=== PATIENT | male | born 1975 | race African-American/Black ===

== ENCOUNTER 2019-04-14 12:24 | Emergency (ER) | payer BC ==
--- NOTE | 2019-04-14 14:39 | ER ---
Nurse's Notes [facility] Name: Rashad Hurtado Age: 44 yrs Sex: Male : 1975 Arrival Date: 04/14/2019 Time: 12:28 Bed 10 Private MD: Joseph Cordova V Diagnosis: Rash and other nonspecific skin eruption;Essential (primary) hypertension Presentation: 04/14 12:59 Transition of care: patient was not received from another setting of care. Care prior aa5 to arrival: None. 12:59 Method Of Arrival: Ambulatory aa5 12:59 Acuity: YESSY 5 aa5 12:59 Presenting complaint: Patient states: rash to face and neck that began yesterday. Sent aa5 here from Urgent care for BP 172/118. Pt states "I left my medicine at home so I haven't taken it today". Onset of symptoms was March 2019. Risk Assessment: Do you want to hurt yourself or someone else? Patient reports no desire to harm self or others. Initial Sepsis Screen: Does the patient meet any 2 criteria? No. Patient's initial sepsis screen is negative. Does the patient have a suspected source of infection? No. Patient's initial sepsis screen is negative. Historical: - Allergies: 13:01 No Known Allergies; aa5 - PMHx: 13:01 Hypertension; aa5 - PSHx: 13:01 None; aa5 - Immunization history:: Flu vaccine is not up to date. - Social history:: Smoking status: Patient uses tobacco products, denies chronic smoking, but will smoke occasionally. - Ebola Screening: : No symptoms or risks identified at this time. Screenin:30 Abuse screen: Denies threats or abuse. Denies injuries from another. Nutritional hb screening: No deficits noted. Tuberculosis screening: No symptoms or risk factors identified. Fall Risk None identified. Assessment: 14:30 General: Appears in no apparent distress. Behavior is calm, cooperative. Pain: Pain hb currently is 4 out of 10 on a pain scale. Neuro: Level of Consciousness is awake, alert, obeys commands, Oriented to person, place, time, situation. Cardiovascular: Capillary refill < 3 seconds Patient's skin is warm and dry. Respiratory: Airway is patent Respiratory effort is even, unlabored, Respiratory pattern is regular, symmetrical, Breath sounds are clear bilaterally. GI: No signs and/or symptoms were reported involving the gastrointestinal system. : No signs and/or symptoms were reported regarding the genitourinary system. EENT: No signs and/or symptoms were reported regarding the EENT system. Derm: diffuse macular rash. Musculoskeletal: No signs and/or symptoms reported regarding the musculoskeletal system. Vital Signs: 13:01 BP 182 / 103; Pulse 90; Resp 16 S; Temp 98.4(TE); Pulse Ox 98% on R/A; Weight 111.58 kg aa5 (R); Height 5 ft. 7 in. (170.18 cm) (R); Pain 4/10; 14:44 BP 160 / 99; Pulse 84; Resp 16; Temp 98.3(O); Pulse Ox 100% ; lt1 13:01 Body Mass Index 38.53 (111.58 kg, 170.18 cm) aa5 ED Course: 12:28 Patient arrived in ED. am2 12:28 Joseph Cordova MD is Private Physician. am2 12:59 Triage completed. aa5 12:59 Arm band placed on. aa5 14:30 [facility]. snw 14:30 Rene Kathleen MD is Attending Physician. snw 14:30 Patient has correct armband on for positive identification. Call light in reach. hb 14:38 Joseph Cordova MD is Referral Physician. snw 14:50 Mariel Paiz, RN is Primary Nurse. hb 14:51 No provider procedures requiring assistance completed. Patient did not have IV access hb during this emergency room visit. Administered Medications: 14:48 Drug: Lisinopril 40 mg Route: PO; hb 14:52 Follow up: Response: Medication administered at discharge. hb 14:48 Drug: predniSONE 20 mg Route: PO; hb 14:52 Follow up: Response: Medication administered at discharge. hb 14:48 Drug: Pepcid 20 mg Route: PO; hb 14:52 Follow up: Response: Medication administered at discharge. hb Outcome: 14:39 Discharge ordered by . snw 14:51 Discharged to home ambulatory, with significant other. hb 14:51 Condition: stable 14:51 Discharge instructions given to patient, family, Instructed on discharge instructions, follow up and referral plans. medication usage, Demonstrated understanding of instructions, follow-up care, medications, Prescriptions given X 2. 14:53 Patient left the ED. Signatures: Adamaris Mo, AYANNA-C PELT SALTER-Csnw Yuliet Snyder RN RN aa5 Mariel Paiz RN RN Lelo Lomax am2 Zee Rosales 1 Corrections: (The following items were deleted from the chart) 13:01 12:59 Presenting complaint: Patient states: rash to face and neck that began yesterday. aa5 Sent here from Urgent care. aa5
--- NOTE | 2019-04-14 14:40 | EDPHYS ---
Physician Documentation [facility] Name: Rashad Hurtado Age: 44 yrs Sex: Male : 1975 Arrival Date: 04/14/2019 Time: 12:28 Bed 10 Private MD: Joseph Cordova V ED Physician Rene Kathleen HPI: 04/14 15:36 This 44 yrs old Black Male presents to ER via Ambulatory with complaints of Rash, snw Allergic Reaction. 15:36 The patient's rash thought to be caused by Dermatitis. The rash is located on the face snw and neck. The rash can be described as papular. Onset: The symptoms/episode began/occurred suddenly, yesterday. Associated signs and symptoms: Pertinent positives: burning sensation, Pertinent negatives: itching. Severity of symptoms: At their worst the symptoms were moderate. The patient has not experienced similar symptoms in the past. appt with Dr. Cordova this week. Historical: - Allergies: 13:01 No Known Allergies; aa5 - PMHx: 13:01 Hypertension; aa5 - PSHx: 13:01 None; aa5 - Immunization history:: Flu vaccine is not up to date. - Social history:: Smoking status: Patient uses tobacco products, denies chronic smoking, but will smoke occasionally. - Ebola Screening: : No symptoms or risks identified at this time. ROS: 15:35 Constitutional: Negative for fever, chills, and weight loss, Eyes: Negative for injury, snw pain, redness, and discharge, ENT: Negative for injury, pain, and discharge, Neck: Negative for injury, pain, and swelling, Cardiovascular: Negative for chest pain, palpitations, and edema, Respiratory: Negative for shortness of breath, cough, wheezing, and pleuritic chest pain, Abdomen/GI: Negative for abdominal pain, nausea, vomiting, diarrhea, and constipation, Back: Negative for injury and pain, : Negative for injury, bleeding, discharge, and swelling, MS/Extremity: Negative for injury and deformity, Neuro: Negative for headache, weakness, numbness, tingling, and seizure, Psych: Negative for depression, anxiety, suicide ideation, homicidal ideation, and hallucinations. 15:35 Skin: Positive for rash, of the face and neck. Exam: 15:32 Constitutional: This is a well developed, well nourished patient who is awake, alert, snw and in no acute distress. Eyes: Pupils equal round and reactive to light, extra-ocular motions intact. Lids and lashes normal. Conjunctiva and sclera are non-icteric and not injected. Cornea within normal limits. Periorbital areas with no swelling, redness, or edema. ENT: Nares patent. No nasal discharge, no septal abnormalities noted. Tympanic membranes are normal and external auditory canals are clear. Oropharynx with no redness, swelling, or masses, exudates, or evidence of obstruction, uvula midline. Mucous membranes moist. Chest/axilla: Normal chest wall appearance and motion. Nontender with no deformity. No lesions are appreciated. Cardiovascular: Regular rate and rhythm with a normal S1 and S2. No gallops, murmurs, or rubs. Normal PMI, no JVD. No pulse deficits. Respiratory: Lungs have equal breath sounds bilaterally, clear to auscultation and percussion. No rales, rhonchi or wheezes noted. No increased work of breathing, no retractions or nasal flaring. Abdomen/GI: Soft, non-tender, with normal bowel sounds. No distension or tympany. No guarding or rebound. No evidence of tenderness throughout. Back: No spinal tenderness. No costovertebral tenderness. Full range of motion. Skin: Warm, dry with normal turgor. Normal color with no rashes, no lesions, and no evidence of cellulitis. MS/ Extremity: Pulses equal, no cyanosis. Neurovascular intact. Full, normal range of motion. Neuro: Awake and alert, GCS 15, oriented to person, place, time, and situation. Cranial nerves II-XII grossly intact. Motor strength 5/5 in all extremities. Sensory grossly intact. Cerebellar exam normal. Normal gait. Psych: Awake, alert, with orientation to person, place and time. Behavior, mood, and affect are within normal limits. 15:32 Head/face: Noted is rash, papular. 15:32 Neck: External neck: rash, that is moderate, of the left mid cervical area, right mid cervical area, left trapezius, lower cervical area, right trapezius, right lateral aspect of neck and left lateral aspect of neck. Vital Signs: 13:01 BP 182 / 103; Pulse 90; Resp 16 S; Temp 98.4(TE); Pulse Ox 98% on R/A; Weight 111.58 kg aa5 (R); Height 5 ft. 7 in. (170.18 cm) (R); Pain 4/10; 14:44 BP 160 / 99; Pulse 84; Resp 16; Temp 98.3(O); Pulse Ox 100% ; lt1 13:01 Body Mass Index 38.53 (111.58 kg, 170.18 cm) aa5 MDM: 14:39 Patient medically screened. snw 15:34 Data reviewed: vital signs, nurses notes. Data interpreted: Pulse oximetry: on room air snw is 100 %. Interpretation: normal. Counseling: I had a detailed discussion with the patient and/or guardian regarding: the historical points, exam findings, and any diagnostic results supporting the discharge/admit diagnosis, the presence of at least one elevated blood pressure reading (>120/80) during this emergency department visit, the need for outpatient follow up, to return to the emergency department if symptoms worsen or persist or if there are any questions or concerns that arise at home. Special discussion: I have referred the patient to see his PCP for further evaluation of high blood pressure. I discussed in detail with the patient the higher chance of wound infection based on his presenting history. Based on the history and exam findings, there is no indication for further emergent testing or inpatient evaluation. I discussed with the patient/guardian the need to see the primary care provider for further evaluation of the symptoms. Administered Medications: 14:48 Drug: Lisinopril 40 mg Route: PO; hb 14:52 Follow up: Response: Medication administered at discharge. hb 14:48 Drug: predniSONE 20 mg Route: PO; hb 14:52 Follow up: Response: Medication administered at discharge. hb 14:48 Drug: Pepcid 20 mg Route: PO; hb 14:52 Follow up: Response: Medication administered at discharge. hb Disposition: 04/14/19 14:39 Discharged to Home. Impression: Rash and other nonspecific skin eruption, Essential (primary) hypertension. - Condition is Stable. - Discharge Instructions: Allergies, Adult, Hypertension, Rash, DASH Eating Plan, Rehydration, Adult, Managing Your Hypertension, Form - Blood Pressure Record Sheet. - Prescriptions for Prednisone 20 mg Oral Tablet - take 2 tablet by ORAL route once daily for 5 days; 10 tablet. Pepcid 20 mg Oral Tablet - take 1 tablet by ORAL route once daily; 20 tablet. - Work release form, Medication Reconciliation Form, Thank You Letter, Antibiotic Education, Prescription Opioid Use form. - Follow up: Joseph Cordova MD; When: 1 week; Reason: Recheck today's complaints, Continuance of care, Re-evaluation by your physician. Follow up: Emergency Department; When: As needed; Reason: Worsening of condition. Addendum: 04/17/2019 10:01 Co-signature as Attending Physician, Rene Kathleen MD I agree with the assessment and k dr plan of care. Signatures: Rnee Kathleen MD MD [facility] Adamaris Mo, 1ST PRESSMAN-C 1ST PRESSMAN-Csnw Yuliet Snyder RN RN aa5 Mariel Paiz RN RN hb Corrections: (The following items were deleted from the chart) 04/14 14:53 14:39 04/14/2019 14:39 Discharged to Home. Impression: Rash and other nonspecific skin hb eruption; Essential (primary) hypertension. Condition is Stable. Forms are Medication Reconciliation Form, Thank You Letter, Antibiotic Education, Prescription Opioid Use. Follow up: Joseph Cordova; When: 1 week; Reason: Recheck today's complaints, Continuance of care, Re-evaluation by your physician. Follow up: Emergency Department; When: As needed; Reason: Worsening of condition. snw
[2019-04-14] MEDS ORDERED: predniSONE 20 MG TAB ONE (14:47)
[2019-04-14] MEDS ORDERED: FAMOTIDINE 20 MG TAB ONE (14:48)
[2019-04-14] MEDS ORDERED: lisinopriL 20 MG TAB ONE (14:48)
[2019-04-14 19:54] VITALS: BP 160/99; TEMP 98.3; O2SAT 100
== END 2019-04-14 14:53 | disposition home or self-care (01) ==
LOC: ER 12:24
DX: R21 Rash and other nonspecific skin eruption (principal); I10 Essential (primary) hypertension; Z72.0 Tobacco use
CPT/HCPCS: 99283; J7512

== ENCOUNTER 2021-01-30 04:14 | Emergency (ER) | payer BC ==
[2021-01-30] MEDS ORDERED: HYDROCODONE/APAP 10/325 TAB ONE (05:32)
[2021-01-30] MEDS ORDERED: COLCHICINE 0.6 MG TAB ONE ×2 (05:35→06:29)
--- NOTE | 2021-01-30 05:37 | ER ---
Nurse's Notes [facility] Name: Rashad Hurtado Age: 45 yrs Sex: Male : 1975 Arrival Date: 01/30/2021 Time: 04:16 Bed 26 Private MD: Diagnosis: Gout, unspecified;Pain in right knee;Effusion, right knee Presentation: 01/30 04:22 Chief complaint: Patient states: Pt states he believes he is having a flare-up of gout wg in his right knee. Pt states he has had gout in his left ankle. Pt states this feels just like the last flare-up 2 years ago. Denies trauma, injury to right knee. Coronavirus screen: Vaccine status: Patient reports receiving the 2nd dose of the covid vaccine. Date August 28, 2020 At this time, the client does not indicate any symptoms associated with coronavirus-19. Ebola Screen: Patient negative for fever greater than or equal to 101.5 degrees Fahrenheit, and additional compatible Ebola Virus Disease symptoms Patient denies exposure to infectious person. Patient denies travel to an Ebola-affected area in the 21 days before illness onset. Initial Sepsis Screen: Does the patient meet any 2 criteria? No. Patient's initial sepsis screen is negative. Does the patient have a suspected source of infection? No. Patient's initial sepsis screen is negative. Risk Assessment: Do you want to hurt yourself or someone else? Patient reports no desire to harm self or others. Onset of symptoms was January 26, 2021. Care prior to arrival: Medication(s) given: ketorolac 600mg 2200 last night. 04:22 Method Of Arrival: Ambulatory 04:22 Acuity: YESSY 3 Triage Assessment: 04:27 General: Appears distressed, uncomfortable, obese, well groomed, Behavior is cooperative, restless. Pain: Complains of pain in right knee. EENT: No deficits noted. Neuro: No deficits noted. Cardiovascular: No deficits noted. Respiratory: No deficits noted. GI: No deficits noted. : No deficits noted. Derm: No deficits noted. Musculoskeletal: Reports swollen and warm. Historical: - Allergies: 04:27 No Known Allergies; wg - Home Meds: 04:27 amlodipine oral [Active]; JARDIANCE [Active]; metformin [Active]; wg - PMHx: 04:27 Diabetes - NIDDM; Hypertension; Gout; wg - Immunization history:: Adult Immunizations up to date. - Social history:: Smoking status: Patient reports the use of cigarette tobacco products, denies chronic smoking, but will smoke occasionally, Patient uses alcohol, only on a social basis. Patient/guardian denies using street drugs, IV drugs. - Family history:: not pertinent. Screenin:52 Abuse screen: Denies threats or abuse. Nutritional screening: No deficits noted. cc4 Tuberculosis screening: No symptoms or risk factors identified. Fall Risk None identified. Gait- Normal/Bed Rest/Wheelchair (0 pts). Vital Signs: 04:22 BP 138 / 90; Pulse 77; Resp 18; Temp 98.7; Pulse Ox 99% on R/A; Weight 113.85 kg; Height 5 ft. 7 in. (170.18 cm); Pain 10/10; 05:00 BP 140 / 94; Pulse 84; Resp 22; Temp 98.2(O); cc4 05:00 BP 146 / 69; cc4 06:17 BP 135 / 59; Pulse 78; Resp 18; cc4 06:55 BP 134 / 62; Pulse 78; Resp 20; Temp 98.5; cc4 04:22 Body Mass Index 39.31 (113.85 kg, 170.18 cm) ED Course: 04:16 Patient arrived in ED. wm 04:22 Omero Bronson MD is Attending Physician. trena 04:27 Triage completed. wg 04:30 Arm band placed on right wrist. 04:52 Patient has correct armband on for positive identification. Bed in low position. Side cc4 rails up X2. Dr Bronson in to see. with assessment. 05:25 Aspiration right knee per daisha Camara. well; aspirate sent to lab. cc4 05:27 Anita Doyle is Primary Nurse. cc4 05:35 Inserted saline lock: 22 gauge in right hand, using aseptic technique. IN NS 1000ml. cc4 05:36 Juan Judge MD is Referral Physician. trena 05:52 Comprehensive Metabolic Panel Sent. cc4 05:52 CBC with Diff Sent. cc4 06:03 Body Fluid Culture Sent. cc4 06:03 Body Fluid Cell Count Sent. cc4 06:03 Miscellaneous Test Lab Sent. cc4 06:03 Body Fluid Crystals Sent. cc4 07:10 IV discontinued, bleeding controlled. cc4 Administered Medications: 05:11 Drug: Colcrys (colchicine) 1.2 mg Route: PO; 06:11 Follow up: Response: Pain is decreased cc4 05:11 Drug: [place] (HYDROcodone-acetaminophen) 10 mg-325 mg 1 tabs Route: PO; 06:11 Follow up: Response: No adverse reaction; Pain is decreased cc4 05:25 Drug: Lidocaine-Epinephrine -1%: (1:100,000) 5 ml Volume: 20 ml; Route: Infiltration; Site: affected area; 05:35 Drug: NS 0.9% 1000 ml Route: IV; Rate: 1 bolus; Site: right hand; cc4 05:35 Drug: Ketorolac 30 mg Route: IVP; Site: right hand; cc4 06:11 Follow up: Response: Pain is decreased cc4 06:11 Drug: Colcrys (colchicine) 0.6 mg Route: PO; cc4 Outcome: 04:52 Condition: c/o right knee gout with pain "10" on pain scale. cc4 05:36 Discharge ordered by . trena 06:55 Discharged to home via wheelchair, with family. cc4 06:55 Condition: improved 07:09 Discharge instructions given to patient, Instructed on discharge instructions, cc4 medication usage, Demonstrated understanding of instructions. 07:13 Patient left the ED. cc4 Signatures: Omero Bronson MD MD cha Marsh, Wendy wm Gamba, Liam, RN Anita Doyle cc4 Corrections: (The following items were deleted from the chart) 05:59 05:53 URIC ACID+C.LAB.BRZ drawn and sent. cc4 EDMS 06:13 05:51 Comprehensive Metabolic Panel drawn and sent. cc4 EDMS 06:13 05:51 CBC with Automated Diff drawn and sent. cc4 EDMS
--- NOTE | 2021-01-30 05:37 | EDPHYS ---
Physician Documentation [facility] Name: Rashad Hurtado Age: 45 yrs Sex: Male : 1975 Arrival Date: 01/30/2021 Time: 04:16 Bed 26 Private MD: [place] Physician Omero Bronson HPI: 01/30 04:52 This 45 yrs old Black Male presents to ER via Ambulatory with complaints of Possible trena Gout flare up. 04:52 The patient presents with decreased range of motion, pain, swelling, tenderness. The trena complaints affect the lateral aspect of right knee and right knee. Context: The problem was sustained at an unknown site. Onset: The symptoms/episode began/occurred 2 day(s) ago. Modifying factors: The symptoms are alleviated by elevating leg, remaining still, the symptoms are aggravated by movement, weight bearing. Associated signs and symptoms: The patient has no apparent associated signs or symptoms. Treatment prior to arrival includes: no previous treatment. Severity of symptoms: At their worst the symptoms were moderate. The patient has not experienced similar symptoms in the past, but friend has similar symptoms. Historical: - Allergies: 04:27 No Known Allergies; wg - Home Meds: 04:27 amlodipine oral [Active]; JARDIANCE [Active]; metformin [Active]; wg - PMHx: 04:27 Diabetes - NIDDM; Hypertension; Gout; wg - Immunization history:: Adult Immunizations up to date. - Social history:: Smoking status: Patient reports the use of cigarette tobacco products, denies chronic smoking, but will smoke occasionally, Patient uses alcohol, only on a social basis. Patient/guardian denies using street drugs, IV drugs. - Family history:: not pertinent. ROS: 04:52 Constitutional: Negative for fever, chills, and weight loss, Eyes: Negative for injury, trena pain, redness, and discharge, ENT: Negative for injury, pain, and discharge, Neck: Negative for injury, pain, and swelling, Cardiovascular: Negative for chest pain, palpitations, and edema, Respiratory: Negative for shortness of breath, cough, wheezing, and pleuritic chest pain, Abdomen/GI: Negative for abdominal pain, nausea, vomiting, diarrhea, and constipation, Back: Negative for injury and pain, : Negative for injury, bleeding, discharge, and swelling, Skin: Negative for injury, rash, and discoloration, Neuro: Negative for headache, weakness, numbness, tingling, and seizure, Psych: Negative for depression, anxiety, suicide ideation, homicidal ideation, and hallucinations, Allergy/Immunology: Negative for hives, rash, and allergies, Endocrine: Negative for neck swelling, polydipsia, polyuria, polyphagia, and marked weight changes, Hematologic/Lymphatic: Negative for swollen nodes, abnormal bleeding, and unusual bruising. 04:52 MS/extremity: Positive for decreased range of motion, pain, swelling, tenderness, of the lateral aspect of right knee, medial aspect of right knee and right knee. Exam: 04:52 Constitutional: This is a well developed, well nourished patient who is awake, alert, trena and in no acute distress. Head/Face: Normocephalic, atraumatic. Eyes: Pupils equal round and reactive to light, extra-ocular motions intact. Lids and lashes normal. Conjunctiva and sclera are non-icteric and not injected. Cornea within normal limits. Periorbital areas with no swelling, redness, or edema. ENT: Nares patent. No nasal discharge, no septal abnormalities noted. Tympanic membranes are normal and external auditory canals are clear. Oropharynx with no redness, swelling, or masses, exudates, or evidence of obstruction, uvula midline. Mucous membranes moist. Neck: Trachea midline, no thyromegaly or masses palpated, and no cervical lymphadenopathy. Supple, full range of motion without nuchal rigidity, or vertebral point tenderness. No Meningismus. Chest/axilla: Normal chest wall appearance and motion. Nontender with no deformity. No lesions are appreciated. Cardiovascular: Regular rate and rhythm with a normal S1 and S2. No gallops, murmurs, or rubs. Normal PMI, no JVD. No pulse deficits. Respiratory: Lungs have equal breath sounds bilaterally, clear to auscultation and percussion. No rales, rhonchi or wheezes noted. No increased work of breathing, no retractions or nasal flaring. Abdomen/GI: Soft, non-tender, with normal bowel sounds. No distension or tympany. No guarding or rebound. No evidence of tenderness throughout. Back: No spinal tenderness. No costovertebral tenderness. Full range of motion. Male : Normal genitalia with no discharge or lesions. Skin: Warm, dry with normal turgor. Normal color with no rashes, no lesions, and no evidence of cellulitis. Neuro: Awake and alert, GCS 15, oriented to person, place, time, and situation. Cranial nerves II-XII grossly intact. Motor strength 5/5 in all extremities. Sensory grossly intact. Cerebellar exam normal. Normal gait. Psych: Awake, alert, with orientation to person, place and time. Behavior, mood, and affect are within normal limits. 04:52 Musculoskeletal/extremity: ROM: intact in all extremities, full active range of motion, Pulses: are normal with no appreciated deficits, Sensation intact. Compartment Syndrome exam of affected extremity: is normal. Joints: All joints are normal except the right knee displays effusion, Weight bearing: is unable to bear weight, DVT Exam: negative Homans' sign noted on exam, no appreciated bluish discoloration, no erythema, no increased warmth, pain, swelling, tenderness. Vital Signs: 04:22 BP 138 / 90; Pulse 77; Resp 18; Temp 98.7; Pulse Ox 99% on R/A; Weight 113.85 kg; wg Height 5 ft. 7 in. (170.18 cm); Pain 10/10; 05:00 BP 140 / 94; Pulse 84; Resp 22; Temp 98.2(O); cc4 05:00 BP 146 / 69; cc4 06:17 BP 135 / 59; Pulse 78; Resp 18; cc4 06:55 BP 134 / 62; Pulse 78; Resp 20; Temp 98.5; cc4 04:22 Body Mass Index 39.31 (113.85 kg, 170.18 cm) Procedures: 04:57 Joint Treatment: of right knee using 18 gauge needle, Removed yellow fluid, Dressed [facility] with band aid, Patient tolerated well. MDM: 04:34 Patient medically screened. [facility] 04:56 Data reviewed: vital signs, nurses notes, lab test result(s). Data interpreted: Cardiac [facility] monitor: rate is 77 beats/min, rhythm is regular, Pulse oximetry: on room air is 99 %. Test interpretation: by ED physician or midlevel provider:. Counseling: I had a detailed discussion with the patient and/or guardian regarding: the historical points, exam findings, and any diagnostic results supporting the discharge/admit diagnosis, lab results. 01/30 04:52 Order name: CBC with Diff [facility] 01/30 04:52 Order name: Comprehensive Metabolic Panel [facility] 01/30 05:56 Order name: Body Fluid Cell Count [facility] 01/30 05:56 Order name: Body Fluid Crystals [facility] 01/30 05:56 Order name: Body Fluid Culture [facility] 01/30 05:57 Order name: Urine Dipstick-Ancillary; Complete Time: 06:06 [facility] 01/30 04:37 Order name: Urine Dipstick-Ancillary (obtain specimen); Complete Time: 06:00 01/30 04:52 Order name: Dressing - Wound; Complete Time: 05:39 [facility] 01/30 04:52 Order name: Gloves, Sterile; Complete Time: 05:39 [facility] 01/30 04:52 Order name: Setup Suture Tray; Complete Time: 05:39 trena Administered Medications: 05:11 Drug: Colcrys (colchicine) 1.2 mg Route: PO; wg 06:11 Follow up: Response: Pain is decreased cc4 05:11 Drug: Aurora (HYDROcodone-acetaminophen) 10 mg-325 mg 1 tabs Route: PO; wg 06:11 Follow up: Response: No adverse reaction; Pain is decreased cc4 05:25 Drug: Lidocaine-Epinephrine -1%: (1:100,000) 5 ml Volume: 20 ml; Route: Infiltration; wg Site: affected area; 05:35 Drug: NS 0.9% 1000 ml Route: IV; Rate: 1 bolus; Site: right hand; cc4 05:35 Drug: Ketorolac 30 mg Route: IVP; Site: right hand; cc4 06:11 Follow up: Response: Pain is decreased cc4 06:11 Drug: Colcrys (colchicine) 0.6 mg Route: PO; cc4 Disposition Summary: 01/30/21 05:36 Discharge Ordered Location: Home trena Problem: new trena Symptoms: have improved trena Condition: Stable trena Diagnosis - Gout, unspecified trena - Pain in right knee trena - Effusion, right knee trena Followup: trena - With: Private Physician - When: 2 - 3 days - Reason: Recheck today's complaints, Continuance of care, Re-evaluation by your physician Followup: trena - With: - When: 2 - 3 days - Reason: Recheck today's complaints, Re-evaluation by your physician Discharge Instructions: - Discharge Summary Sheet trena - Joint Pain trena - Gout trena - Knee Effusion trena - Acute Knee Pain, Adult [facility] Forms: - Medication Reconciliation Form [facility] - Thank You Letter [facility] - Antibiotic Education [facility] - Prescription Opioid Use [facility] Prescriptions: - colchicine 0.6 mg Oral tablet - take 1 tablet by ORAL route every 1 hour up to 3 hours; 6 tablet; Refills: 0, [facility] Product Selection Permitted - indomethacin 50 mg Oral capsule - take 1 capsule by ORAL route 3 times per day with food; 21 capsule; Refills: 0, [facility] Product Selection Permitted - Medrol (Asif) 4 mg Oral Tablets, Dose Pack - take 1 tablet by ORAL route as directed - follow package instructions; 1 [facility] packet; Refills: 0, Product Selection Permitted - Tylenol-Codeine #3 300 mg-30 mg Oral - take 2 tablet by ORAL route every 4-6 hours; 20 tablet; Refills: 0, Product trena Selection Permitted Signatures: Dispatcher [employer] EDMS Omero Bronson MD MD cha Gamba, Liam, RN Anita Lua cc4 Hugo Rosario Corrections: (The following items were deleted from the chart) 05:59 04:31 URIC ACID+C.LAB.BRZ ordered. EDMS EDMS 06:13 04:52 CBC with Automated Diff ordered. EDMS EDMS 06:13 04:52 Comprehensive Metabolic Panel ordered. EDMS EDMS 06:13 05:59 Uric Acid ordered. EDMS EDMS
[2021-01-30] MEDS ORDERED: LIDOCAINE 1% W/EPI 1:100,000 MDV 50 ML VIAL ONE (05:44)
[2021-01-30] MEDS ORDERED: NA CHLORIDE 0.9% 1,000 ML ONE (05:54)
[2021-01-30] MEDS ORDERED: KETOROLAC 30 MG/ML INJ ONE (05:54)
[2021-01-30 05:58] LABS: Urine Blood Negative (Negative); Urine Glucose 3+ (Negative); Urine Protein Negative (Negative)
[2021-01-30 06:41] LABS: Appearance SLT. TURBID (CLEAR); Body Fluid Source SYNOVIAL; Body Fluid WBC 10512 /mm^3; Color of fluid Yellow (COLORLESS)
[2021-01-30 07:21] VITALS: O2SAT 99
[2021-01-30 07:24] VITALS: BP 134/62; TEMP 98.5
== END 2021-01-30 07:13 | disposition home or self-care (01) ==
LOC: ER 04:14
PROC: 0S9C3ZX Drainage of Right Knee Joint, Percutaneous Approach, Diagnostic (ICD-10-PCS; principal; 2021-01-30)
DX: M25.461 Effusion, right knee (principal); M10.9 Gout, unspecified; I10 Essential (primary) hypertension; E11.9 Type 2 diabetes mellitus without complications; F17.210 Nicotine dependence, cigarettes, uncomplicated
CPT/HCPCS: 87070; 36415; 89050; 83615; 84157; 82945; 81003; 89060; 96374; 99284; 10021; J7030